=== PATIENT | female | born 2000 | race African-American/Black ===

== ENCOUNTER 2021-04-09 13:49 | Emergency (ER) | payer OTHER ==
[~2021-04-09] VITALS: Ht 167.6 cm; Wt 83.0 kg
[2021-04-09 14:53] LABS: Urine Bacteria FEW /hpf (None Seen); Urine Blood Negative /uL (Negative); Urine Mucus FEW (None Seen); Urine WBC 1 /hpf (0 - 5)
[2021-04-09] MEDS ORDERED: ONDANSETRON HCL 4 MG/2 ML VIAL IV ONE (15:00)
[2021-04-09] MEDS ORDERED: MORPHINE SULFATE INJECTION 2 MG/ML SYRG IV ONE (15:00)
[2021-04-09 15:32] LABS: Basophils # (auto) 0.1 10 ^3/uL (0-0.2); Basophils % (auto) 1.1 % (0.0-2.0); Eosinophils # (auto) 0.1 10 ^3/uL (0-0.8); Eosinophils % (auto) 1.1 % (0.0-7.0); Hematocrit 41.1 % (36.0-46.0); Hemoglobin 13.5 g/dL (12.2-16.2); Lymphocytes % (auto) 37.4 % (10.0-50.0); Mean Corpuscular Hemoglobin 27.8 pg (28.0-32.0); Mean Corpuscular Hgb Conc. 32.9 g/dL (32.0-36.0); Mean Corpuscular Volume 84.3 fL (80.0-100.0); Monocytes # (auto) 0.4 10 ^3/uL (0-1.3); Monocytes % (auto) 7.6 % (0.0-12.0); Neutrophils # (auto) 2.8 10 ^3/uL (1.6-8.6); Neutrophils % (auto) 52.8 % (37.0-80.0); Nucleated Red Blood Cells % 0.3 %; Red Blood Cells 4.87 10^6/uL (4.0-5.20); Red Cell Distribution Width 14.5 % (11.8-14.3); White Blood Cell 5.2 10^3/uL (4.4-10.8)
[2021-04-09 15:51] LABS: BUN/Creatinine Ratio 13.6; Calcium 9.6 mg/dL (8.5-10.1); Potassium 3.9 mmol/L (3.5-5.1)
[2021-04-09 15:55] LABS: INR 1.05 (0.9-1.15)
[2021-04-09 15:58] LABS: Bilirubin, Total 0.3 mg/dL (0.2-1.0); Total Protein 7.8 g/dL (6.4-8.2)
[2021-04-09 16:01] VITALS: BP 105/76
[2021-04-09] MEDS ORDERED: SODIUM CHLORIDE 0.9% 1,000 ML IV ONE (16:30)
[2021-04-09 16:46] LABS: Alcohol, Urine < 3.0 mg/dL (0-10); Amphetamine Screen, Urine NEGATIVE (NEGATIVE); Barbiturate Scree,Urine NEGATIVE (NEGATIVE); Benzodiazephine Screen, Urine NEGATIVE (NEGATIVE); Cannabinoid Screen, Urine NEGATIVE (NEGATIVE); Cocaine Screen, Urine NEGATIVE (NEGATIVE); Opiate Scree,Urine NEGATIVE (NEGATIVE); Phencyclidine Screen, Urine NEGATIVE (NEGATIVE)
== END 2021-04-09 17:59 | disposition home or self-care (01) ==
LOC: ER 14:01
DX: K52.9 Noninfective gastroenteritis and colitis, unspecified (principal); J45.909 Unspecified asthma, uncomplicated; E78.5 Hyperlipidemia, unspecified
CPT/HCPCS: 36415; 74176; 80053; 80307; 81001; 81025; 83605; 84702; 85025; 85610; 85730; 96361; 96374; 96375; 99284; J2270; J2405; J7030

== ENCOUNTER 2022-03-12 20:02 | Emergency (ER) | payer OTHER ==
[~2022-03-12] VITALS: Ht 167.6 cm; Wt 85.2 kg
[2022-03-12 20:46] LABS: Urine Bacteria MANY /hpf (None Seen); Urine Blood Negative /uL (Negative); Urine Mucus FEW (None Seen); Urine Specific Gravity 1.023 (1.001-1.035); Urine WBC 5 /hpf (0 - 5)
[2022-03-12 20:56] LABS: Basophils # (auto) 0.1 10 ^3/uL (0-0.2); Basophils % (auto) 0.9 % (0.0-2.0); Eosinophils # (auto) 0.1 10 ^3/uL (0-0.8); Eosinophils % (auto) 1.3 % (0.0-7.0); Hematocrit 39.8 % (36.0-46.0); Hemoglobin 13.3 g/dL (12.2-16.2); Lymphocytes # (auto) 2.2 10 ^3/uL (0.4-5.4); Lymphocytes % (auto) 32.9 % (10.0-50.0); Mean Corpuscular Hemoglobin 28.2 pg (28.0-32.0); Mean Corpuscular Hgb Conc. 33.4 g/dL (32.0-36.0); Mean Corpuscular Volume 84.6 fL (80.0-100.0); Monocytes # (auto) 0.5 10 ^3/uL (0-1.3); Monocytes % (auto) 7.8 % (0.0-12.0); Neutrophils # (auto) 3.8 10 ^3/uL (1.6-8.6); Neutrophils % (auto) 57.1 % (37.0-80.0); Nucleated Red Blood Cells % 0.1 %; Red Cell Distribution Width 15.2 % (11.8-14.3); White Blood Cell 6.6 10^3/uL (4.4-10.8)
[2022-03-12 21:11] LABS: Albumin 3.8 g/dL (3.4-5.0); Calcium 9.5 mg/dL (8.5-10.1); Potassium 4.1 mmol/L (3.5-5.1)
[2022-03-12 21:15] LABS: BUN/Creatinine Ratio 18.2; Bilirubin, Total 0.3 mg/dL (0.2-1.0); Total Protein 7.4 g/dL (6.4-8.2)
[2022-03-13] MEDS ORDERED: SENN8.6C PO (07:17)
[2022-03-13] MEDS ORDERED: CIPR-173 PO (07:17)
[2022-03-13 07:50] VITALS: BP 150/66
== END 2022-03-13 07:50 | disposition home or self-care (01) ==
LOC: ER 20:02
DX: K52.9 Noninfective gastroenteritis and colitis, unspecified (principal); J45.909 Unspecified asthma, uncomplicated; E78.5 Hyperlipidemia, unspecified
CPT/HCPCS: 36415; 74176; 80053; 81001; 81025; 85025; 86850; 86900; 86901

== ENCOUNTER 2024-09-06 15:56 | Emergency (ER) | payer OTHER ==
[~2024-09-06] VITALS: Ht 167.6 cm; Wt 94.0 kg
[~2024-09-06 15:56] MED LIST: CIPR-173 PO; SENN8.6C PO
[2024-09-06 15:58] VITALS: TEMP 97.8
--- NOTE | 2024-09-06 16:10 | ED.PDOC ---
History of Present Illness HPI Comments 24-year-old female came to the ER stating that she has been having chest pain for the past three days. No radiation of the chest pain. She was seen at [facility] yesterday for which she was cleared from any cardiac event. She comes back today before going to work that she is still has chest pain. Blood pressure heart rate saturation all within normal limits. Denies any other symptoms. Chief Complaint: Chest Pain Time Seen by MD: 16:00 Primary Care Provider: NONE Reviewed Notes: Nurses Notes, Medications, Allergies Allergies: Coded Allergies: NO KNOWN ALLERGIES (Unverified , 04/09/21) Home Meds Active Scripts Sennosides (Senna) 8.6 Mg Cap, 8.6 MG PO DAILY for 7 Days, #7 CAP Prov:YVONNE LOYD MD 03/13/22 Ciprofloxacin Hcl (Cipro) 500 Mg Tab, 500 MG PO BID for 7 Days, #14 TAB Prov:YVONNE LOYD MD 03/13/22 Information Source: Patient Mode of Arrival: Ambulatory Severity: Moderate Timing: Days Duration: Since onset Past Medical History PAST MEDICAL HISTORY: Asthma, High Lipids Surgical History: Denies all surgeries DIAPER FOLDER History: No Pertinent DIAPER FOLDER History Family History Family History: Reviewed,noncontributory to illness Social History Smoker: Non-Smoker Alcohol: Denies ETOH Use Drugs: Denies Drug Use Lives In: Home Constitutional: denies: chills, diaphoresis, fatigue, fever, malaise, sweats, weakness, others EENTM: denies: blurred vision, double vision, ear bleeding, ear discharge, ear drainage, ear pain, ear ringing, eye pain, eye redness, hearing loss, mouth pain, mouth swelling, nasal discharge, nose bleeding, nose congestion, nose pain , photophobia, tearing, throat pain, throat swelling, voice changes, others Respiratory: denies: cough, hemoptysis, orthopnea, SOB at rest, shortness of breath, SOB with excertion, stridor, wheezing, others Cardiovascular: reports: chest pain; denies: dizzy spells, diaphoresis, Dyspnea on exertion, edema, irregular heart beat, left arm pain, lightheadedness, palpitations, PND, syncope, others Gastrointestinal: denies: abdomen distended, abdominal pain, blood streaked bowels, constipated, diarrhea, dysphagia, difficulty swallowing, hematemesis, melena, nausea, poor appetite, poor fluid intake, rectal bleeding, rectal pain, vomiting, others Genitourinary: denies: abnormal vagina bleeding, burning, dyspareunia, dysuria, flank pain, frequency, hematuria, incontinence, pain, , vagina discharge, urgency, others Neurological: denies: dizziness, fainting, headache, left sided numbness, left sided weakness, numbness, paresthesia, pre-existing deficit, right sided numbness, right sided weakness, seizure, speech problems, tingling, tremors, weakness, others Musculoskeletal: denies: back pain, gout, joint pain, joint swelling, muscle pain, muscle stiffness, neck pain, others Integumetry: denies: bruises, change in color, change in hair/nails, dryness, laceration, lesions, lumps, rash, wounds, others Allergic/Immunocompromised: denies: Difficulty Healing, Frequent Infections, Hives, Itching, others Hematologic/Lymphatic: denies: anemia, blood clots, easy bleeding, easy bruising, swollen glands, others Endocrine: denies: excessive hunger, excessive sweating, excessive thirst, excessive urination, flushing, intolerance to cold, intolerance to heat, unexplained weight gain, unexplained weight loss, others Psychiatric: denies: anxiety, bipolar disorder, depression, hopeless, panic disorder, schizophrenia, sleepless, suicidal, others Physical Exam General Appearance: Moderate Distress HEENT: Normal ENT Inspection, Pharynx Normal, TMs Normal Neck: Full Range of Motion, Non-Tender, Normal, Normal Inspection Respiratory: Chest Non-Tender, Lungs Clear, No Accessory Muscle Use, No Respiratory Distress, Normal Breath Sounds Cardiovascular: No Edema, No JVD, No Murmur, No Gallop, Normal Peripheral Pulses, Regular Rate/Rhythm Breast Exam: Deferred Gastrointestinal: No Organomegaly, Non Tender, No Pulsatile Mass, Normal Bowel Sounds, Soft Genitalia: Deferred Pelvic: Deferred Rectal: Deferred Extremities: No calf tenderness, Normal capillary refill, Normal inspection, Normal range of motion, Non-tender, No pedal edema Musculoskeletal : Apperance: Normal Neurologic: Alert, special duty nurse II-XII nml as Tested, No Motor Deficits, Normal Affect, Normal Mood, No Sensory Deficits Cerebellar Function: Normal Reflexes: Normal Skin: Dry, Normal Color, Warm Peripheral Pulses: 3+ Radial (R), 3+ Radial (L) Lymphatic: No Adenopathy Was a procedure done? Was a procedure done?: No EKG EKG : Pulse Rate (adult): 73 Cardiac Rhythm: NSR Differential Dx Considerations may include: Anxiety Pleurisy X-Ray, Labs, Meds, VS Vital Signs Date Time Temp Pulse Resp B/P (MAP) Pulse Ox O2 Delivery O2 Flow Rate FiO2 09/06/24 16:10 73 09/06/24 16:00 73 09/06/24 15:58 97.8 84 20 135/87 (103) 99 97.8 Lab Test 09/06/24 16:07 Range/Units D-Dimer, Quantitative 0.32 0.0-0.49 mg/L FEU Troponin I High Sensitivity < 3 L </=34 ng/L Patient alert. Complaining of chest pain. Vitals stable. Answering all questions. Was given aspirin. Reviewed her visit yesterday to [facility]. Cardiac marker at that time was within normal limits. EKG reviewed does not show any acute changes. EKG reviewed does show mild inflammation. Possible pleurisy. Was given prescription of prednisone. Explained to the patient. Was told to follow up with her primary care physician. Was told to come back if there is any problem. Time of 1ST Reevaluation: 16:08 Reevaluation 1ST: Improved Patient Education/Counseling: Diagnosis, Treatment, Prognosis, Need For Follow Up Family Education/Counseling: No Family Present SEPSIS Sepsis Screen Physician Orders Electrocardigram (09/06/24 16:03) Electrocardigram (09/06/24 17:02) Electrocardigram (09/06/24 19:02) Chest Portable (09/06/24 16:06) Vital Signs Date Time Temp Pulse Resp B/P (MAP) Pulse Ox O2 Delivery O2 Flow Rate FiO2 09/06/24 16:10 73 09/06/24 16:00 73 09/06/24 15:58 97.8 84 20 135/87 (103) 99 97.8 Departure 1 Departure Time of Disposition: 16:09 Impression: Primary Impression: Musculoskeletal chest pain Additional Impression: Pleurisy Disposition: 01 HOME / SELF CARE / HOMELESS Condition: Good e-Prescriptions Prednisone (Prednisone) 10 Mg Tab 10 MG PO DAILY for 5 Days, #5 MG Prov: CORI COLLINS MD 09/06/24 Discharged With: Self Critical Care Note Critical Care Time?: No Stability Stability form required: No Heart Score Heart Score: Heart Score Response (Comments) Value History Slightly Suspicious 0 EKG Normal 0 Age <45 0 Risk Factors No known risk factors 0 Troponin Normal limit 0 Total 0 CORI COLLINS MD Sep 06, 2024 16:10
--- NOTE | 2024-09-06 16:54 | DVH ---
CHEST RADIOGRAPH Indication: sob Technique: Single frontal view of the chest was obtained Comparison: None FINDINGS: Lines and Tubes: None Lungs: No focal consolidation. Pleura: No effusion. No pneumothorax. Cardiomediastinal contours: Unremarkable Bones: No acute osseous abnormality. IMPRESSION: 1. No acute cardiopulmonary disease.
[2024-09-06] MEDS ORDERED: PRED10TA PO (17:01)
[2024-09-06 17:10] VITALS: BP 107/75; PULSE 62; RESP 18; O2SAT 98
--- NOTE | 2024-09-08 08:01 | ECG ---
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
== END 2024-09-06 17:16 | disposition home or self-care (01) ==
LOC: ER 15:56
DX: R07.89 Other chest pain (principal); R09.1 Pleurisy; J45.909 Unspecified asthma, uncomplicated
CPT/HCPCS: 36415; 71045; 84484; 85379; 93005